=== PATIENT | male | born 1980 | race Caucasian/White ===

== ENCOUNTER 2019-07-16 15:03 | Emergency (ER) | payer SELFPAY ==
[~2019-07-16] VITALS: Ht 185.4 cm; Wt 120.2 kg
--- NOTE | 2019-07-16 15:06 | NUR ---
BIBA TAKEN TO BED 9
[2019-07-16 15:10] VITALS: BP 115/78
--- NOTE | 2019-07-16 15:19 | NUR ---
38 Y/O MALE BIBA BLS C/O COUGH, NASAL CONGESTION, HEADACHE, AND BODY ACHES X 2 WKS. PT STATES PRODUCTIVE, WET COUGH. DENIES FEVER. RR EVEN AND UNLABORED, NO ACCESSORY MUSCLE USE. PT DOES NOT APPEAR TO BE IN ANY DISTRESS. HOB ELEVATED, X 1 SIDE RAIL RAISED, VSS. MEDHX: ASTHMA, ANXIETY ALLERGIES: PENICILLIN, MORPHINE
--- NOTE | 2019-07-16 15:54 | NUR ---
SPOKE TO PTS KALI. REQUESTS UPDATES ABOUT PT. PHONE NUMBER
--- NOTE | 2019-07-16 16:27 | NUR ---
RESTING WITH EYES CLOSED, VISIBLE RISE AND FALL OF THE CHEST. RR EVEN AND UNLABORED. AROUSABLE TO NAME. REMAINS ON THE MONTIOR. VSS
--- NOTE | 2019-07-16 16:51 | NUR ---
Patient discharged with v/s stable. Written and verbal after care instructions given and explained. Patient alert, oriented and verbalized understanding of instructions. Ambulatory with steady gait. All questions addressed prior to discharge. ID band removed. Patient advised to follow up with PMD. Rx of AUGMENTIN AND TESSALON PERLES given. Patient educated on indication of medication including possible reaction and side effects. Opportunity to ask questions provided and answered.
[2019-07-16 16:54] VITALS: BP 110/74
== END 2019-07-16 16:51 | disposition home or self-care (01) ==
LOC: MED 15:03
DX: J20.9 Acute bronchitis, unspecified (principal); R19.7 Diarrhea, unspecified
CPT/HCPCS: 99283